=== PATIENT | female | born 1990 | race Caucasian/White ===

== ENCOUNTER 2017-06-05 18:02 | Emergency (ER) | payer MEDICAID ==
[~2017-06-05] VITALS: Ht 160 cm; Wt 73.0 kg
[2017-06-05] MEDS ORDERED: KETOROLAC 15MG/ML VIAL IV SCH (21:30)
[2017-06-05] MEDS ORDERED: DIPHENHYDRAMINE 50MG/ML VIAL IV SCH (21:30)
[2017-06-05] MEDS ORDERED: SODIUM CHLORIDE 0.9% 1,000 ML IV ONE (21:30)
[2017-06-05] MEDS ORDERED: PROCHLORPERAZINE 10MG/2ML VIAL IV NR (21:30)
[2017-06-06 01:30] VITALS: BP 118/68
== END 2017-06-06 01:20 | disposition home or self-care (01) ==
LOC: ER 18:22
DX: G43.909 Migraine, unspecified, not intractable, without status migrainosus (principal); J45.909 Unspecified asthma, uncomplicated; Z88.5 Allergy status to narcotic agent
CPT/HCPCS: 81025; 96361; 96374; 96375; 99285; J0780; J1200; J1885; Z7610

== ENCOUNTER 2017-08-24 14:26 | Emergency (ER) | payer MEDICAID ==
[~2017-08-24] VITALS: Ht 160 cm; Wt 73.0 kg
[2017-08-24 15:33] LABS: CLARITY URINE CLOUDY (CLEAR); COLOR URINE YELLOW (YELLOW); KETONES URINE TRACE (NEGATIVE); LEUKOCYTE ESTERASE URINE NEGATIVE (NEGATIVE); NITRITE URINE NEGATIVE (NEGATIVE); OCCULT BLOOD URINE NEGATIVE (NEGATIVE); PH URINE 7.5 (4.5-8.0); PROTEIN URINE TRACE (NEGATIVE); SPECIFIC GRAVITY URINE 1.038 (1.005-1.030)
[2017-08-24 15:52] LABS: BASOPHILS % 0.2 % (0.0-2.0); EOSINOPHILS % 0.6 % (0.0-5.0); HEMATOCRIT. 34.3 % (36.0-48.0); HEMOGLOBIN. 11.9 g/dL (12.0-16.0); LYMPHOCYTES % 18.1 % (20.0-50.0); MEAN CORPUSCULAR HEMOGLOBIN 28.7 pg (28.0-32.0); MEAN CORPUSCULAR VOLUME 82.9 fL (81.0-99.0); MEAN PLATELET VOLUME 8.9 fl (7.4-10.4); MONOCYTES % 7.5 % (2.0-8.0); NEUTROPHILS % 73.6 % (40.0-76.0); PLATELET 286 x1000/uL (130-400); RED BLOOD CELL COUNT 4.14 mill/uL (4.2-5.4); RED CELL DISTRIBUTION WIDTH 13.8 % (11.6-14.6)
[2017-08-24 15:54] LABS: CHLORIDE 110 mEq/L (98-107)
[2017-08-24 15:55] LABS: INR 1.1; PROTHROMBIN TIME 11.8 sec (9.4-11.6)
[2017-08-24] MEDS ORDERED: SODIUM CHLORIDE 0.9% 1,000 ML IV ONE (15:58)
[2017-08-24] MEDS ORDERED: ONDANSETRON HCL 4MG/2ML VIAL IV STA (15:58)
[2017-08-24] MEDS ORDERED: MORPHINE SULFATE 4 MG/ML CPJ (NOT FOR IM USE) IV STA (15:58)
[2017-08-24 15:59] LABS: HCG SCREEN NEGATIVE
[2017-08-24] MEDS ORDERED: KETOROLAC 30MG/ML VIAL IV ONE (16:45)
[2017-08-24] MEDS ORDERED: IOHEXOL-300 100 ML BOTTLE ONE (17:46)
[2017-08-24 18:43] VITALS: BP 107/64
== END 2017-08-24 19:11 | disposition home or self-care (01) ==
LOC: ER 15:47
DX: R10.30 Lower abdominal pain, unspecified (principal); R19.7 Diarrhea, unspecified; J45.909 Unspecified asthma, uncomplicated; Z88.5 Allergy status to narcotic agent
CPT/HCPCS: 36415; 74177; 80053; 81003; 83690; 84703; 85025; 85610; 96361; 96374; 96375; 99285; J1885; J2405; J7030; Q9967; J2270

== ENCOUNTER 2018-11-19 06:02 | Emergency (ER) | payer MEDICAID ==
[~2018-11-19] VITALS: Ht 160 cm; Wt 68.0 kg
[2018-11-19] MEDS ORDERED: HYDROCODONE/ACETAMINOPHEN 5/325MG TABLET PO STA (06:50)
[2018-11-19 07:18] LABS: CHLORIDE 108 mEq/L (98-107)
[2018-11-19 07:21] LABS: INR 1.1; PROTHROMBIN TIME 11.3 sec (9.6-11.0)
[2018-11-19 07:22] LABS: BASOPHILS % 0.4 % (0.0-2.0); HEMATOCRIT. 34.6 % (36.0-48.0); LYMPHOCYTES % 32.8 % (20.0-50.0); MEAN CORPUSCULAR HEMOGLOBIN 30.8 pg (28.0-32.0); MEAN CORPUSCULAR VOLUME 88.4 fL (81.0-99.0); MEAN PLATELET VOLUME 8.6 fl (7.4-10.4); MONOCYTES % 7.4 % (2.0-8.0); NEUTROPHILS % 58.4 % (40.0-76.0); PLATELET 230 x1000/uL (130-400); RED BLOOD CELL COUNT 3.91 mill/uL (4.2-5.4); RED CELL DISTRIBUTION WIDTH 13.6 % (11.6-14.6)
[2018-11-19 09:30] VITALS: BP 118/82
== END 2018-11-19 09:30 | disposition home or self-care (01) ==
LOC: ER 06:02
DX: N93.9 Abnormal uterine and vaginal bleeding, unspecified (principal); J45.909 Unspecified asthma, uncomplicated; Z88.6 Allergy status to analgesic agent
CPT/HCPCS: 36415; 76830; 76856; 80053; 81025; 85025; 85610; 86850; 86900; 86901; 99284; Z7610

== ENCOUNTER 2019-03-16 19:13 | Emergency (ER) | payer OTHER, MEDICAID ==
[~2019-03-16] VITALS: Ht 160 cm; Wt 73.0 kg
[2019-03-16] MEDS ORDERED: HYDROCODONE/ACETAMINOPHEN 5/325MG TABLET PO ONE (21:00)
[2019-03-16] MEDS ORDERED: ONDANSETRON 4MG ODT PO ONE (21:00)
[2019-03-16 22:29] VITALS: BP 129/91
== END 2019-03-16 22:30 | disposition home or self-care (01) ==
LOC: ER 20:20
DX: R51 Headache (principal); R20.0 Anesthesia of skin; R11.0 Nausea; J45.909 Unspecified asthma, uncomplicated; Z88.6 Allergy status to analgesic agent
CPT/HCPCS: 70450; 99284; Q0162

== ENCOUNTER 2020-12-20 15:16 | Inpatient (IN) | payer OTHER, MEDICAID ==
[~2020-12-20] VITALS: Ht 160 cm; Wt 72.6 kg
[2020-12-20] MEDS ORDERED: METHYLPREDNISOLONE SOD SUCC 125 MG/2 ML VIAL IV STA (16:01)
[2020-12-20] MEDS ORDERED: IPRATROPIUM BROMIDE (0.02%) 0.5MG/2.5ML NEB HHN STA (16:01)
[2020-12-20] MEDS ORDERED: ACETAMINOPHEN 325MG TABLET PO STA (16:13)
[2020-12-20] MEDS ORDERED: SODIUM CHLORIDE 0.9% 1,000 ML IV ONE (16:15)
[2020-12-20] MEDS: ALBUTEROL (0.083%) 2.5MG/3ML NEB HHN SCH ×3 (16:30→18:20)
[2020-12-20 16:54] LABS: CHLORIDE 111 mEq/L (98-107)
[2020-12-20 17:00] LABS: BASOPHILS % 0.2 % (0.0-2.0); EOSINOPHILS % 0.3 % (0.0-5.0); HEMATOCRIT. 35.5 % (36.0-48.0); HEMOGLOBIN. 12.1 g/dL (12.0-16.0); LYMPHOCYTES % 24.8 % (20.0-50.0); MEAN CORPUSCULAR HEMOGLOBIN 28.8 pg (28.0-32.0); MEAN CORPUSCULAR VOLUME 84.6 fL (81.0-99.0); MEAN PLATELET VOLUME 8.7 fl (7.4-10.4); MONOCYTES % 5.7 % (2.0-8.0); PLATELET 318 x1000/uL (130-400); RED CELL DISTRIBUTION WIDTH 14.2 % (11.6-14.6)
[2020-12-20 17:41] LABS: HCG SCREEN NEGATIVE
[2020-12-20] MEDS ORDERED: KETOROLAC 15MG/ML VIAL IV ONE (18:15)
[2020-12-20] MEDS ORDERED: ALBU6.7H11 INH (19:10)
[2020-12-20] MEDS ORDERED: P50 MT (19:10)
[2020-12-20] MEDS ORDERED: CLONIDINE 0.1MG TABLET PO PRN (21:45)
[2020-12-20] MEDS ORDERED: ACETAMINOPHEN 325MG TABLET PO PRN ×2 (21:45)
[2020-12-20] MEDS ORDERED: MAGNESIUM/ALUMINUM HYDROXIDE/SIMETHICONE 30ML UDC PO PRN (21:45)
[2020-12-20] MEDS ORDERED: IPRATROPIUM/ALBUTEROL 0.5-3(2.5)MG/3ML NEB NEB PRN (21:45)
[2020-12-20] MEDS ORDERED: DOCUSATE SODIUM 100MG CAPSULE PO PRN (21:45)
[2020-12-20] MEDS: NITROGLYCERIN 0.4MG TABLET SL SL PRN ×2 (22:33→22:52)
[2020-12-20] MEDS: ENOXAPARIN 40MG/0.4ML SYR SUBCUT SCH (22:53)
[2020-12-20] MEDS: METHYLPREDNISOLONE SOD SUCC 125 MG/2 ML VIAL IV SCH (22:54)
[2020-12-20] MEDS: FAMOTIDINE 20MG TABLET PO SCH (23:56)
[2020-12-21 01:56] LABS: CREATINE KINASE 52 IU/L (26-192)
[2020-12-21 01:57] LABS: CREATINE KINASE MB FRACTION < 1.0 ng/mL (0.5-3.6)
[2020-12-21 05:09] LABS: HEMOGLOBIN. 11.3 g/dL (12.0-16.0); LYMPHOCYTES % 16.9 % (20.0-50.0); MEAN CORPUSCULAR HEMOGLOBIN 28.7 pg (28.0-32.0); MEAN PLATELET VOLUME 8.4 fl (7.4-10.4); MONOCYTES % 1.2 % (2.0-8.0); NEUTROPHILS % 81.9 % (40.0-76.0); PLATELET 282 x1000/uL (130-400); RED BLOOD CELL COUNT 3.93 mill/uL (4.2-5.4); RED CELL DISTRIBUTION WIDTH 14.1 % (11.6-14.6)
[2020-12-21 05:13] LABS: CHLORIDE 112 mEq/L (98-107)
[2020-12-21 05:17] LABS: PHOSPHORUS 3.1 mg/dL (2.5-4.9)
[2020-12-21 05:19] LABS: CREATINE KINASE 51 IU/L (26-192)
[2020-12-21 05:23] LABS: CREATINE KINASE MB FRACTION < 1.0 ng/mL (0.5-3.6)
[2020-12-21] MEDS: METHYLPREDNISOLONE SOD SUCC 125 MG/2 ML VIAL IV SCH ×3 (08:20→21:07)
[2020-12-21] MEDS: ZINC SULFATE 220 MG ( 50 ) CAPSULE PO SCH (10:53)
[2020-12-21] MEDS: ASCORBIC ACID 500 MG TABLET PO SCH ×2 (10:54→20:42)
[2020-12-21] MEDS: FAMOTIDINE 20MG TABLET PO SCH ×2 (10:54→20:42)
[2020-12-21] MEDS: NITROGLYCERIN 0.4MG TABLET SL SL PRN (13:35)
[2020-12-21] MEDS: KETOROLAC 15MG/ML VIAL IV PRN ×2 (14:11→20:42)
[2020-12-21 18:00] VITALS: BP 119/72
[2020-12-21 20:00] VITALS: BP 110/70
[2020-12-21] MEDS: ENOXAPARIN 40MG/0.4ML SYR SUBCUT SCH (20:50)
[2020-12-22] VITALS: BP 120/65
[2020-12-22 04:00] VITALS: BP 109/56
[2020-12-22] MEDS: IPRATROPIUM/ALBUTEROL 0.5-3(2.5)MG/3ML NEB HHN SCH ×5 (04:47→21:34)
[2020-12-22] MEDS: KETOROLAC 15MG/ML VIAL IV PRN ×2 (05:54→12:26)
[2020-12-22] MEDS: METHYLPREDNISOLONE SOD SUCC 125 MG/2 ML VIAL IV SCH ×3 (05:56→21:00)
[2020-12-22 08:00] VITALS: BP 106/62
[2020-12-22] MEDS: ASCORBIC ACID 500 MG TABLET PO SCH ×2 (08:01→21:01)
[2020-12-22] MEDS: NITROGLYCERIN 0.4MG TABLET SL SL PRN ×3 (08:01→18:01)
[2020-12-22] MEDS: FAMOTIDINE 20MG TABLET PO SCH ×2 (08:01→21:01)
[2020-12-22] MEDS: ZINC SULFATE 220 MG ( 50 ) CAPSULE PO SCH (08:01)
[2020-12-22] MEDS: GUAIFENESIN 200MG/10ML SUGAR FREE UDC PO PRN ×2 (08:01→13:45)
[2020-12-22] MEDS: ONDANSETRON HCL 4MG/2ML INJ IV PRN (08:40)
[2020-12-22 12:00] VITALS: BP 95/53
[2020-12-22 16:00] VITALS: BP 99/49
[2020-12-22 20:00] VITALS: BP 105/55
[2020-12-22] MEDS: ENOXAPARIN 40MG/0.4ML SYR SUBCUT SCH (21:00)
[2020-12-22] MEDS: ZOLPIDEM TARTRATE 5MG TABLET PO PRN (21:01)
[2020-12-23] VITALS: BP 100/50
[2020-12-23] MEDS: IPRATROPIUM/ALBUTEROL 0.5-3(2.5)MG/3ML NEB HHN SCH ×6 (01:29→20:22)
[2020-12-23 04:00] VITALS: BP 108/55
[2020-12-23] MEDS: METHYLPREDNISOLONE SOD SUCC 125 MG/2 ML VIAL IV SCH (05:25)
[2020-12-23] MEDS: KETOROLAC 15MG/ML VIAL IV PRN (05:25)
[2020-12-23] MEDS: ONDANSETRON HCL 4MG/2ML INJ IV PRN (05:27)
[2020-12-23] MEDS: ZINC SULFATE 220 MG ( 50 ) CAPSULE PO SCH (07:55)
[2020-12-23] MEDS: ASCORBIC ACID 500 MG TABLET PO SCH ×2 (07:55→21:21)
[2020-12-23] MEDS: FAMOTIDINE 20MG TABLET PO SCH ×2 (07:55→21:21)
[2020-12-23 08:00] VITALS: BP 106/66
[2020-12-23 12:00] VITALS: BP 105/64
[2020-12-23] MEDS: SUCRALFATE 1 G/10 ML UDC PO SCH ×3 (12:09→21:20)
[2020-12-23] MEDS ORDERED: LACTULOSE 20G/30ML UDC PO SCH (12:15)
[2020-12-23 16:00] VITALS: BP 106/66
[2020-12-23 20:00] VITALS: BP 110/65
[2020-12-23] MEDS: ENOXAPARIN 40MG/0.4ML SYR SUBCUT SCH (21:21)
[2020-12-23] MEDS: ZOLPIDEM TARTRATE 5MG TABLET PO PRN (21:21)
[2020-12-24] VITALS: BP 110/65
[2020-12-24] MEDS: IPRATROPIUM/ALBUTEROL 0.5-3(2.5)MG/3ML NEB HHN SCH ×3 (01:27→08:30)
[2020-12-24 04:00] VITALS: BP 109/60
[2020-12-24] MEDS: SUCRALFATE 1 G/10 ML UDC PO SCH (05:43)
[2020-12-24] MEDS: KETOROLAC 15MG/ML VIAL IV PRN (05:43)
[2020-12-24 07:58] VITALS: BP 114/76
[2020-12-24] MEDS: ASCORBIC ACID 500 MG TABLET PO SCH (08:13)
[2020-12-24] MEDS: FAMOTIDINE 20MG TABLET PO SCH (08:13)
[2020-12-24] MEDS: ZINC SULFATE 220 MG ( 50 ) CAPSULE PO SCH (08:13)
[2020-12-24] MEDS: GUAIFENESIN 200MG/10ML SUGAR FREE UDC PO PRN (08:14)
[2020-12-24] MEDS ORDERED: PREDNISONE 20MG TABLET PO SCH (09:00)
[2020-12-24 11:23] VITALS: BP 114/76
== END 2020-12-24 12:16 | disposition home or self-care (01) | DRG 189 ==
LOC: ER 15:16 → MICUSO 20:26 → 8WST 12-21 14:25
PROVIDERS: ADMIT Internal Medicine; ATTEND Internal Medicine
DX: J96.00 Acute respiratory failure, unspecified whether with hypoxia or hypercapnia (principal); J45.901 Unspecified asthma with (acute) exacerbation; E66.9 Obesity, unspecified; Z20.822 Contact with and (suspected) exposure to COVID-19; Z79.899 Other long term (current) drug therapy; Z79.51 Long term (current) use of inhaled steroids; Z88.6 Allergy status to analgesic agent; Z68.28 Body mass index [BMI] 28.0-28.9, adult
CPT/HCPCS: 36415; 71045; 80053; 82550; 82553; 83036; 83735; 84100; 84484; 84703; 85025; 85379; 87426; 93005; 93970; 94640; 94644; 99285; J1650; J1885; J2405; J2930; J7030; J7512

== ENCOUNTER 2021-05-12 18:25 | Emergency (ER) | payer OTHER, MEDICAID ==
[~2021-05-12] VITALS: Ht 160 cm; Wt 75.0 kg
[~2021-05-12 18:25] MED LIST: ALBU6.7H15 INH; P50 MT
[2021-05-12] MEDS ORDERED: IBUP-2029 MT (22:26)
[2021-05-12] MEDS ORDERED: TC1U15 TP (22:26)
[2021-05-12] MEDS ORDERED: LORA10TA7 MT (22:27)
[2021-05-12 22:38] VITALS: BP 139/80
== END 2021-05-12 22:42 | disposition home or self-care (01) ==
LOC: ER 18:25
DX: T88.1XXA Other complications following immunization, not elsewhere classified, initial encounter (principal); X58.XXXA Exposure to other specified factors, initial encounter; R50.9 Fever, unspecified; R11.2 Nausea with vomiting, unspecified; J45.909 Unspecified asthma, uncomplicated; Z79.899 Other long term (current) drug therapy
CPT/HCPCS: 99283